=== PATIENT | female | born 1985 | race Caucasian/White ===

== ENCOUNTER 2016-12-15 15:27 | Inpatient (IN) | payer OTHER ==
[~2016-12-15] VITALS: Ht 172.7 cm; Wt 121.6 kg
[2016-12-15 16:09] LABS: Mean Corpuscular Hemoglobin 29.6 pg (27.0-35.0)
[2016-12-15] MEDS ORDERED: Oxytocin 10 Unit/mL Inj IM PRN (16:45)
[2016-12-15] MEDS ORDERED: Ondansetron 2 mg/mL 2 mL Inj IVPUSH PRN (16:45)
[2016-12-15] MEDS ORDERED: Carboprost 250 mCg/mL Inj IM PRN (16:45)
[2016-12-15] MEDS ORDERED: Oxytocin 30 Units/500 mL LR 30 UNITS in IV Premix 1 EACH IV PRN ×2 (16:45→17:50)
[2016-12-15] MEDS ORDERED: Methylergonovine 0.2 mg/mL Inj IM PRN (16:45)
[2016-12-15] MEDS ORDERED: fentaNYL-PF 50 mCg/mL 2 mL Inj IVPUSH PRN (16:45)
[2016-12-15] MEDS ORDERED: Sodium Chloride LOK Flush 10 mL Syringe IVFLUSH PRN (16:45)
[2016-12-15] MEDS ORDERED: Hemorrhage Kit, Post Partum XX ONE (16:45)
[2016-12-15] MEDS ORDERED: PNV1TABL9 PO (16:53)
[2016-12-15] MEDS: Lactated Ringer's 1,000 ML IV PRN ×2 (18:08→22:24)
--- NOTE | 2016-12-15 18:26 | PCM.HPOB ---
Subjective Referring Provider: Admitting Physician: Kimmy Pierce MD Primary Care Physician: Dina Gardner MD Attending Physician: Kimmy Pierce MD Chief Complaint fluid leakage History of Present History of Present Illness Ms. Gaspar is a 30 y/o woman at 38 weeks 6 days gestation who presented to the [facility] after feeling like her water broke. MERRY 12/23/2016 adjusted based on first ultrasound done at 20 weeks gestation. She felt a little leakage of fluid this morning. She had her membranes stripped yesterday during her visit. She has been feeling contractions every 15-20 minutes. She has had a headache for the past 2 days. She does not have any new changes to her vision or blurry vision. She does not have fever, chills, upper abdominal pain, dysuria, or diarrhea. During her , she has had acne. There was a choroid plexus cyst on ultrasound at 20 weeks gestation but it resolved. labs: blood type A positive, varicella immune, rubella immune, RPR nonreactive, HBsAg negative, HIV negative, gonorrhea and chlamydia negative, GBS negative, Hepatitis C negative, 1 hour glucose tolerance test within normal limits, HgbA1c 5.3%, TSH 1.460 OB History: (5), Para (4), Term (3), Pre-term (1), ( 0), Living (4) Obstetrical Complications: Pre-eclampsia Past Medical History Obstetrical History: 4 NSVDs and induced One baby was 9 lb 5 oz Gynecologic History: No history of STIs No history of abnormal Pap smears Medical History: Denies significant medical history including hypertension Surgical History: Denies Hx Tobacco Use: Yes Smoking Status: Current Every Day Smoker (3 cigarettes/day) Hx Alcohol Use: No Hx Substance Use: Yes (marijuana once per week or every other week) Past Family History Family History Denies Review of Systems Constitutional: Y: Chills, Fever Eyes: Denies: Blurred Vision, Double Vision, Vision Changes ENT: Denies: Throat Pain Cardiovascular: Denies: Chest Pain, SOB while laying flat Respiratory: Denies: Cough, Pleuritic Chest Pain, SOB with Exertion Gastrointestinal: Denies: Abdominal Pain, Diarrhea, Epigastric pain Genitourinary: Denies: Dysuria Neurological: Denies: Dizziness, Numbness Medications Home medications vitamin Allergy Coded Allergies: Delgado (Verified Allergy, Severe, Anaphylaxis, 12/15/16) Mold (Blue) Cheese (Verified Allergy, Severe, Anaphylaxis, 12/15/16) throat swelling, hives Exam Vital Signs One blood pressure reading 140/75 Exam FHR baseline 130s, moderate variability, no accelerations, no decelerations Constitutional: Well-developed, Well-nourished HEENT: Atraumatic, EOMI, Scleral Anicteric, Mucous Membr Moist/Jenks Lungs: Clear to Auscultation, Normal Air Movement Heart: Exam Unremarkable, Regular Rate/Rhythm, Normal S1, Normal S2, No Murmurs /Rubs/Gallops Abdomen: Gravid, Normal bowel sounds, Soft Extremities: Pulses Palpable x4, Warm, Edema (mild bilateral pedal) Skin: Other (facial acne) Neurological/Psychiatric: Alert, Oriented X3, Cooperative, No Acute Distress Neuro: Grossly Neurologically Intact Labs/Diagnostics Labs Item Value Date Time White Blood Count 10.5 th/mm3 H 12/15/16 1602 Hemoglobin 10.6 g/dL L 12/15/16 1602 Hematocrit 33.3 % L 12/15/16 1602 Creatinine 0.42 mg/dL L 12/15/16 1602 Blood Urea Nitrogen 8 mg/dL 12/15/16 1602 Aspartate Amino Transf (AST/SGOT) 14 U/L 12/15/16 1602 Alanine Aminotransferase (ALT/SGPT) 10 U/L 12/15/16 1602 Urine Protein/Creatinine Ratio 0.70 12/15/16 1556 Urine Cannabinoids Screen Positive 12/15/16 1556 Maternal Blood Type: A (positive) Antibody Screen: negative Group B Strep Results: Negative Rubella: Immune OB Intrapartum Assessment/Plan Assessment 1. 30 y/o woman at 38 weeks 6 days gestation. Currently in first stage of labor. complicated by preeclampsia. -Garcia score 6. Normal uterine activity. -Admitted for induction of labor for preeclampsia -Started Pitocin -Continue monitoring FHR and contractions -Continue expectant management 2. Preeclampsia -Blood pressure 140/74 and elevated protein/creatinine ratio -Continue to monitor blood pressure -Will initiate magnesium if blood pressure elevates Attending Statement The patient was seen and examined together with Dr. Nya Martin DO on 2016 and I agree with the history, exam and plan as outlined in the note above. Nya Martin DO Dec 15, 2016 18:26 Kimmy Pierce MD Dec 15, 2016 22:58
--- NOTE | 2016-12-15 22:44 | PCM.PNOBIP ---
Subjective Date of Service Dec 15, 2016 Delivery plan: Spontaneous Vaginal Delivery Subjective Patient feeling contractions and would like epidural. Pain Management: Epidural Group B Strep Results: Negative Rubella: Immune Blood Type: A (positive) RH Type: Positive Labs Laboratory Tests 12/15/16 16:02: White Blood Count 10.5, Red Blood Count 3.58, Hemoglobin 10.6, Hematocrit 33.3, Mean Corpuscular Volume 93.0, Mean Corpuscular Hemoglobin 29.6, Mean Corpuscular Hemoglobin Concent 31.8, Red Cell Distribution Width 14.0, Platelet Count 177, Hematology Comments Exam Vital Signs Vital Signs Contraction frequency in minutes: MVUs: Vital Signs: VS reviewed, stable Heart Tracings Heart Tones Baseline bpm Heart Rate Variability: Moderate Heart Rate Accelleration: Present Heart Rate Deceleration: Absent Heart Rate Category: I Tocometry/IUPC Contraction frequency in minutes: every 2 to 3 minutes Sterile Vaginal Exam Cervical Dilation: 6 cms Cervical Effacement: 80 % Station: -2 Exam Heart: No Murmurs/Rubs/Gallops General: Alert, Oriented X3, Cooperative, Mild Distress OB Intrapartum Assessment/Plan Intrapartum plan: AROM (clear) Intrapartum Pain Management: May have epidural when desired Kimmy Pierce MD Dec 15, 2016 22:44
[2016-12-15] MEDS ORDERED: fentaNYL 2 mCg/mL-Bupivicaine 0.125% 100 mL Premix EPIDURAL ONE (22:55)
[2016-12-15] MEDS ORDERED: Lactated Ringer's 500 ML IV ONE (23:21)
--- NOTE | 2016-12-15 23:21 | PCM.HPANE ---
Patient Data Date of Service: Dec 15, 2016 (7322) Surgeon Admitting Provider:Kimmy Pierce MD Attending Provider:Kimmy Pierce MD Primary Care Physician:Dina Gardner MD Other Provider:Di Paul Anesthesia Reason for Visit Active Labor ACTIVE LABOR Ht/WT & BMI Body Mass Index Allergies Coded Allergies: Delgado (Verified Allergy, Severe, Anaphylaxis, 12/15/16) Mold (Blue) Cheese (Verified Allergy, Severe, Anaphylaxis, 12/15/16) throat swelling, hives Past Anesthesia History Anesthesia History: Denies:: Abnormal Airway, Anesthesia Reactions, Difficult Intubation, Fam Anesthesia Reaction, Fam Malignant Hypertherm, Malignant Hyperthermia Diabetes History Hx Diabetes?: No MRSA MRSA: No Medications Reported Medications Pnv Cmb#21/Iron/Folic Acid ( Complete Caplet)1 Each Tablet1 Each PO DAILY 12/15/16 History History of ENT Problems?: No HEENT History: Denies:: Abnormal Airway Cataracts Difficult Intubation Dysphagia Glaucoma Hearing Problem Sinus Problem TMJ Denture Type: None Teeth Condition: Within Normal Limits Hx of Heart Problems?: No Cardiovascular History: Denies:: AICD Abdominal Aortic Aneurism Atrial Fibrillation Cardiac Surgery Chest Pain Congestive Heart Failure Coronary Artery Disease Edema Heart Murmur Hypertension Irregular Heartbeat Pacemaker Peripheral Vascular Rheumatic Fever Thrombophlebitis Valvular Heart Disease Hx of Respiratory Problem?: No Respiratory History: Denies:: Asthma COPD Chest Surgery Cough Dyspnea Emphysema Hemoptysis Oxygen Administration Pneumonia Pulmonary Embolism Tuberculosis Use of C-PAP Machine Use of Inhalers / NEBS Hx Neurologic Problems?: No Neurological History: Denies:: Alzheimer's Disease CVA Dementia Dizziness Headaches Multiple Sclerosis Parkinson's Disease Peripheral Neuropathy Seizures TIA Hx of GI Problems?: No Gastrointestinal History: Denies:: Cirrhosis Diverticulitis Gall Bladder Disease Gastroesphageal Reflux Gastrointestinal Bleeding Heartburn Hepatitis Hiatal Hernia Liver Disease Rectal Bleeding Hx of Problems?: No Genitourinary History: Denies:: HX of Hemodialysis Kidney Stones Urinary Tract Infection HX of Peritoneal Dialysis: No Female Hx: Denies:: Currently Endometriosis Pelvic Inflammatory Problems with Breasts? Skin History: Denies:: History Skin Disorders? Pressure Ulcers Hx Musculoskeletal Problems?: No Musculoskeletal History: Denies:: Back Injury Degenerative Joint Fibromyalgia Joint Replacement Musculoskeletal Trauma Myasthenia Gravis Osteoarthritis Rheumatoid Arthritis Systemic Lupus Hx of Psycho/Social Problems?: No Psycho Social History: Denies:: Anxiety Bipolar Disorder Hx Depression Suicide Attempt Hx Surgeries?: No Hx Any Other Health Problems?: No Other History: Denies:: Cancer Endocrine Disease Hospitalization Thyroid Disease History Blood Transfusions: Denies:: Accept Blood Products? Blood Transfuse Reaction Blood Transfusions Hx Diabetes: No Hx Alcohol Use: NoHx Substance Use: Yes (marijuana once per week or every other week) Smoking Status: Current Every Day Smoker (3 cigarettes/day) Have You Smoked inLast 12 mo: Yes Stop/Bang Risk Assessment Category Category 1A: Patient has history of documented sleep apnea, and HAS NOT received any narcotic, sedative or anesthesia administration during this stay. Category 1B: Patient has history of documented sleep apnea, and HAS received any narcotic , sedative or anesthesia administration during this stay Category 2: Patient has SUSPECTED Obstructive Sleep Apnea, and HAS received any narcotic , sedative or anesthesia administration during this stay. Category 3: Patient has SUSPECTED Obstructive Sleep Apnea and HAS NOT received narcotic, sedative or anesthesia administration during this stay. Category 4: Outpatient in Procedural Areas with known sleep apnea or who screen positive for High Risk via the STOP/BANG questionnaire. Exam Exam General Appearance: Alert, Oriented X3, Cooperative, Severe Distress (labor pain) HEENT/AIRWAY: MP 2, Mouth Opening (FROM) Lungs: Clear to Auscultation, Normal Air Movement Heart: No Murmurs/Rubs/Gallops Meds/Labs/Diagnostics Labs Test 12/15/16 15:56 12/15/16 16:02 Urine Random Creatinine 79mg/dL (16-392) Urine Random Total Protein 55mg/dL (0-15) Urine Protein/Creatinine Ratio 0.70 Urine Opiates Screen Negative Urine Methadone Screen Negative Urine Barbiturates Screen Negative Urine Amphetamines Screen Negative Urine Benzodiazepines Screen Negative Urine Cocaine Metabolite Screen Negative Urine Cannabinoids Screen Positive White Blood Count 10.5th/mm3 (3.8-10.1) Red Blood Count 3.58mil/mm3 (3.90-5.20) Hemoglobin 10.6g/dL (12.0-15.6) Hematocrit 33.3% (35.0-46.0) Mean Corpuscular Volume 93.0fL (81-100) Mean Corpuscular Hemoglobin 29.6pg (27.0-35.0) Mean Corpuscular Hemoglobin Concent 31.8% (32.0-37.0) Red Cell Distribution Width 14.0% (12.3-15.4) Platelet Count 177bil/L (150-400) Hematology Comments Blood Urea Nitrogen 8mg/dL (6-20) Creatinine 0.42mg/dL (0.57-1.00) Uric Acid 4.1mg/dL (2.6-7.2) Aspartate Amino Transf (AST/SGOT) 14U/L (0-50) Alanine Aminotransferase (ALT/SGPT) 10U/L (0-32) Plan Impression Patient chart reviewed, patient interviewed and anesthestic plan with risks, benefits, and alternatives discussed, and informed consent obtained. ASA Physical Status: ASA3 Severe Disease (BMI 40) Anesthetic Plan: Epidural Bene/Risks/Altern/Consents: Yes HP Complete Prior to Induction: Yes Sean Hernandez MD Dec 15, 2016 23:21
[2016-12-15] MEDS ORDERED: Atropine 1 mg/10 mL (Code) Syringe IVPUSH PRN (23:25)
[2016-12-15] MEDS ORDERED: fentaNYL 2 mCg/mL-Bupiv 0.125% 100 ML EPIDURAL SCH (23:25)
[2016-12-15] MEDS ORDERED: EPHEDrine Sulfate 50 mg/mL Inj IVPUSH PRN (23:25)
[2016-12-16] MEDS ORDERED: Oxytocin 10 Unit/mL Inj IM PRN (00:05)
[2016-12-16] MEDS ORDERED: LANOlin HPA 7 Gm Ointment TOPICAL PRN (00:05)
[2016-12-16] MEDS ORDERED: Oxytocin 30 Units/500 mL LR 30 UNITS in IV Premix 1 EACH IV PRN (00:05)
[2016-12-16] MEDS ORDERED: Hemorrhage Kit, Post Partum XX ONE (00:05)
[2016-12-16] MEDS ORDERED: Methylergonovine 0.2 mg/mL Inj IM PRN (00:05)
[2016-12-16] MEDS ORDERED: Witch Hazel-Glycerin Pads TOPICAL PRN (00:05)
[2016-12-16] MEDS ORDERED: Carboprost 250 mCg/mL Inj IM PRN (00:05)
[2016-12-16] MEDS ORDERED: Benzocaine (Dermoplast) 20% 60 Gm Spray TOPICAL PRN (00:05)
--- NOTE | 2016-12-16 00:07 | PCM.OBVAG ---
Vaginal Delivery Date of Service Dec 16, 2016 Pre Operative Diagnosis Pre Operative Diagnosis 1. 30 y/o woman at 38 weeks 6 days gestation 2. Preeclampsia Post Operative Diagnosis Post Operative Diagnosis 1. 30 y/o woman at 38 weeks 6 days gestation 2. Preeclampsia Procedure Obstetical Procedure: Normal Spontaneous Vaginal Delivery Seamer/Literary Writer Provider and Literary Writer: MD Nya Marrero DO, PGY-1 Indication for Procedure Induction: Induction of labor, AROM Findings Obstetrical Findings: (Male), Cord (3 Vessel), Weight (pending at this time), Presentation (OA), 1 minute (9), 5 minutes (10) Analgesia/Medications Obstetrical Anesthesia: Epidural Procedure Details Procedure Details Patient is a 30 yo now who was admitted to Labor and Delivery on 2016 for induction of labor for preeclampsia. She desired an epidural and one was placed. She made normal progress through labor and was found to be complete about 23:38. Her membranes were ruptured. She began pushing. FHR was baseline 120s-130s. Procedure: A sterile drape was placed under the patient's buttocks and with expulsive efforts, she delivered head over an intact perineum. Nuchal cord x1 was reduced. The rest of the body was delivered. The baby was placed on maternal abdomen, skin to skin. Warming and stimulating maneuvers were applied. After a minute, the cord was clamped, and cut. The was delivered at 23:48. The placenta then delivered spontaneously intact at 23:53 with a three vessel cord. Uterus firmed with manual external massage. The perineum was examined and there no lacerations. Sponge and instrument counts were correct x2 at the close of the procedure. The patient and tolerated the procedure well and pt is stable in her room Blood Loss & Administration Estimated Blood Loss: 200 Blood Admin during procedure: No Post Procedure Plan Post Procedure Plan Routine care. Post delivery Condition: Mom stable Attending Statement I was present for the entire procedure and assisted Dr. Martin with the delivery as needed and agree with the above documentation. Nya Martin DO Dec 16, 2016 00:07 Kimmy Pierce MD Dec 16, 2016 06:33
--- NOTE | 2016-12-16 06:28 | PCM.PNOBPP ---
Subjective Date of Service Dec 16, 2016 Post : Spontaneous Vaginal Delivery Visit History Ms. Gaspar is a 30 y/o woman at 38 weeks 6 days gestation who presented to the [facility] after feeling like her water broke. MERRY 12/23/2016 adjusted based on first ultrasound done at 20 weeks gestation. She felt a little leakage of fluid this morning. She had her membranes stripped yesterday during her visit. She has been feeling contractions every 15-20 minutes. She has had a headache for the past 2 days. She does not have any new changes to her vision or blurry vision. She does not have fever, chills, upper abdominal pain, dysuria, or diarrhea. During her , she has had acne. There was a choroid plexus cyst on ultrasound at 20 weeks gestation but it resolved. labs: blood type A positive, varicella immune, rubella immune, RPR nonreactive, HBsAg negative, HIV negative, gonorrhea and chlamydia negative, GBS negative, Hepatitis C negative, 1 hour glucose tolerance test within normal limits, HgbA1c 5.3%, TSH 1.460 OB History: (5), Para (4), Term (3), Pre-term (1), ( 0), Living (4) Subjective Patient has no complaints today and is resting comfortably in bed. She has ambulated and voided and tolerating a regular diet. Lochia: Normal Pain Management: PO pain meds, Epidural Gastrointestinal: Good Appetite Postop Activity: Ambulating Independently Group B Strep Results: Negative Rubella: Immune Blood Type: A (positive) RH Type: Positive Labs Laboratory Tests 12/15/16 16:02: White Blood Count 10.5, Red Blood Count 3.58, Hemoglobin 10.6, Hematocrit 33.3, Mean Corpuscular Volume 93.0, Mean Corpuscular Hemoglobin 29.6, Mean Corpuscular Hemoglobin Concent 31.8, Red Cell Distribution Width 14.0, Platelet Count 177, Hematology Comments Exam Vital Signs Vital Signs: VS reviewed, stable Exam Abdomen: Fundus firm Perineum: Intact Extremities: No cords, No edema General: Alert, Oriented X3, Cooperative OB Post Assessment/Plan Problems: (1) care and examination immediately after delivery Plan: 1. Continue routine care 2. Anticipate discharge home tomorrow Status: Acute ICD Code: Z39.0 Kimmy Pierce MD Dec 16, 2016 06:28
--- NOTE | 2016-12-16 06:52 | PCM.ANEP1 ---
Post Anesthesia Phase 1 PACU Phase 1 Assessment Date of Service: Dec 15, 2016 (6292) Anesthetic Administered: Epidural Level of Alertness: Awake, talking HILARIO's with Equal Strength: Yes Pain: No Pain Scale Score: 5 Nausea or Vomiting: No Cardiovascular Function and Hy: No Oxygen Delivery: Room Air Lungs: Clear to Auscultation, Normal Air Movement Dermatome Level: Full Sensation Complications: No Follow up Care: No Comments no apparent anesthesia complications Sean Hernandez MD Dec 16, 2016 06:52
[2016-12-16] MEDS: Ascorbic Acid 500 mg Tablet PO SCH ×2 (07:53→18:49)
[2016-12-16] MEDS: oxyCODONE-Acetamin 5-325 mg Tablet PO PRN ×3 (13:18→23:57)
[2016-12-17] MEDS: Lactated Ringer's 1,000 ML IV SCH ×4 (02:05→02:07)
--- NOTE | 2016-12-17 06:59 | PCM.DIOB ---
Obstetrical Disch Instruction Dates of Hospitalization Date of Hospital Admission Dec 15, 2016 at 16:48 Providers Admitting Physician: Kimmy Pierce MD Primary Care Physician: Dina Gardner MD Attending Physician: Kimmy Pierce MD Discharge Diagnosis Problems: (1) care and examination immediately after delivery Status: Acute ICD Code: Z39.0 Diet Discharge Diet: No restrictions Activity Discharge Activity-General: Pelvic Rest for 6 weeks, Be up and about, Balance rest and activity, Activity as pain allows Dressing and Incisional Care Hygiene: May shower, Perineal care, Sitz bath, Witch Magui pads Follow Up Plan Follow-up appointment: Weeks (6) Call your provider for: Fever or Chills, Shortness of breath, Heavy vaginal bleeding, Heavy bleeding, Other (Headache, vision changes or RUQ pain) Nicole Mckeon MD Dec 17, 2016 06:59
[2016-12-17] MEDS ORDERED: DOCU-41 PO (07:01)
[2016-12-17] MEDS ORDERED: IBUP800T28 PO (07:01)
[2016-12-17] MEDS ORDERED: OXYC1TAB24 PO (07:01)
[2016-12-17] MEDS: oxyCODONE-Acetamin 5-325 mg Tablet PO PRN (07:29)
[2016-12-17 07:52] LABS: Mean Corpuscular Hemoglobin 29.7 pg (27.0-35.0); Mean Corpuscular Volume 93.2 fL (81-100)
[2016-12-17 08:27] VITALS: BP 117/68; PULSE 77; RESP 18
--- NOTE | 2016-12-17 10:06 | DIS ---
[address] [address] DISCHARGE SUMMARY PATIENT: DIALLO ALFRED : 1985 MR#: [id number] ADMIT: 12/15/2016 JOB ID: [id number] DIS: 12/17/2016 ADMISSION DIAGNOSES: 1. A 30-year-old G 5, P 4 female at 38 plus 6 weeks gestational age with spontaneous rupture of membranes. 2. Elevated blood pressure. DISCHARGE DIAGNOSIS: 1. Status post spontaneous vaginal delivery. 2. A 30-year-old G 5, P 4 female at 38 plus 6 weeks gestational age with spontaneous rupture of membranes. 3. Elevated blood pressure PROCEDURES PERFORMED: Spontaneous vaginal delivery of a live born male born at 2348 hours on December 15, 2016 with Apgars of 9 at one minute and 10 at five minutes. REASON FOR ADMISSION: This is a 30-year-old G 5, P 4-0-0-4 female who presented at 38 plus 6 weeks gestation to the [facility] complaining of spontaneous rupture of membranes on December 15. Her EDC was December 23, 2016. Her was complicated by elevated blood pressure at the time of admission with a blood pressure of 140s/70s with normal laboratory evaluation of this with the exception of an elevated protein/creatinine ratio 0.7, but normal AST, ALT and platelet count. She also had a urine drug screen at the time of admission, which was positive for marijuana. She was admitted when she was found to be grossly ruptured and Pitocin was started for augmentation of labor. Her blood pressures were monitored throughout her time on labor and delivery and were otherwise within normal limits. She went on to deliver via vaginal delivery of her . By day #1, she was doing very well. She was tolerating a regular diet, voiding and ambulating well on her own. As she delivered shortly before midnight, she was kept until day #2. By day #2, she was tolerating a regular diet, voiding and ambulating well on her own. Her infant was stable in the room with her and her lochia was minimal. At this point in time, she was requesting discharge home. CPS was consulted due to a history of previous CPS related to her previous drug use. INSTRUCTIONS AT DISCHARGE: The patient was advised to remain on pelvic rest for six weeks including no tampons, douching or intercourse. She was asked to call with any signs or symptoms of infection including fever greater than 100.5 degrees, severe pain, malodorous vaginal discharge or bleeding greater than one pad per hour. Additionally she was asked to call with any signs or symptoms of severe preeclampsia including headache that is not relieved with Tylenol administration, right upper quadrant pain or visual changes. Her blood pressures have been normal following delivery. MEDICATIONS AT DISCHARGE: Included: Percocet 5/325 1-2 tabs p.o. q.4 hours p.r.n. pain, dispensed #20 as well as ibuprofen 800 mg p.o. q.8 hours p.r.n. pain and Colace 100 mg p.o. b.i.d. She was asked to continue her vitamins as prescribed. All questions and concerns of the patient were answered and she was stable for discharge on day #2. LYNETTE
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
[2016-12-27 05:47] LABS: Cannabinoid Positive (.)
== END 2016-12-17 08:51 | disposition home or self-care (01) | DRG 774 ==
LOC: FBCO 15:27 → FBC 16:48
PROVIDERS: ADMIT Obstetrics & Gynecology; ATTEND Obstetrics & Gynecology
PROC: 3E033VJ Introduction of Other Hormone into Peripheral Vein, Percutaneous Approach (ICD-10-PCS; 2016-12-15)
PROC: 10907ZC Drainage of Amniotic Fluid, Therapeutic from Products of Conception, Via Natural or Artificial Opening (ICD-10-PCS; 2016-12-15)
PROC: 10E0XZZ Delivery of Products of Conception, External Approach (ICD-10-PCS; principal; 2016-12-16)
DX: O69.81X0 Labor and delivery complicated by cord around neck, without compression, not applicable or unspecified (principal); O14.03 Mild to moderate pre-eclampsia, third trimester; O99.333 Smoking (tobacco) complicating pregnancy, third trimester; Z3A.38 38 weeks gestation of pregnancy; F17.210 Nicotine dependence, cigarettes, uncomplicated; Z37.0 Single live birth